=== PATIENT | female | born 1990 | race African-American/Black ===

== ENCOUNTER 2021-07-12 16:18 | Emergency (ER) | payer OTHER ==
[2021-07-12 16:38] VITALS: BP 106/69; PULSE 82; TEMP 98.5; BMI 24.7
[2021-07-12] MEDS ORDERED: IBUPROFEN 600 MG TABLET (FP) PO ONE ×3 (19:12→19:26)
[2021-07-14 02:07] LABS: SARS-CoV-2 NAA Detected (Not Detected)
== END 2021-07-12 20:02 | disposition home or self-care (01) ==
LOC: JER 16:18
DX: U07.1 COVID-19 (principal)
CPT/HCPCS: 87804; 99283-25; C9803; U0003; U0005